=== PATIENT | female | born 1995 | race Caucasian/White ===

== ENCOUNTER 2018-05-13 19:18 | Emergency (ER) | payer OTHER ==
[~2018-05-13] VITALS: Ht 165.1 cm; Wt 119.3 kg
[2018-05-13 19:30] VITALS: BP 137/59
--- NOTE | 2018-05-13 19:35 | NUR ---
TO ER BED 12
--- NOTE | 2018-05-13 19:35 | NUR ---
23 Y/O F PRESENTS TO THE ED W/ C/O RIGHT NEE PAIN. PT STATES SHE WAS WALKING AND FELT IT POP AND THEN IT LOCKED. NO OBVIOUS DEFORMATIES NOTED. SKIN IS INTACT, PINK/WARM/DRY; PERRL; LUNGS CLEAR BL, BREATHING UNLABORED; HR EVEN AND REGULAR, BL PERIPHERAL PULSES PRESENT; 7/10 PAIN AT THIS TIME; VSS; PATIENT POSITIONED FOR COMFORT; HOB ELEVATED; BEDRAILS UP X2; BED DOWN.
--- NOTE | 2018-05-13 19:55 | NUR ---
xray at bedside
[2018-05-13] MEDS ORDERED: HYDROcodone/APAP 5/325 MG 1 TAB TAB PO ONE (20:30)
[2018-05-13] MEDS ORDERED: KETOROLAC 30 MG/ML VIAL IM ONE (20:30)
--- NOTE | 2018-05-13 20:44 | NUR ---
20 INCH KNEE IMMOBILIZER APPLIED TO PT R KNEE, TIGHTENED INTO POSITION. PT STATED SHE FELT COMFORTABLE WITH IMMOBILIZER. +CSM.
--- NOTE | 2018-05-13 20:50 | NUR ---
PT GIVEN INSTRUCTION ON PROPER USE OF CRUTCHES. PT GIVEN INSTRUCTION ON SITTING/STANDING, GOING UP AND DOWN STAIRS, AND DEMONSTRATED SAFE USE OF CRUTCHES FRO APPROXIMATELY 20 FEET. PT CRUTCHES FITTED TO HEIGHT WITH 2 INCH SPACE BETWEEN ARMPUIT AND START OF CRUTCHES, AND HANDLES RESTING AT PT WRISTS.
[2018-05-13 20:58] VITALS: BP 133/69
--- NOTE | 2018-05-13 20:59 | NUR ---
Patient discharged with v/s stable. Written and verbal after care instructions given and explained. Patient alert, oriented and verbalized understanding of instructions. Ambulatory with steady gait. All questions addressed prior to discharge. ID band removed. Patient advised to follow up with PMD. Rx of NORCO, NAPROSYN given. Patient educated on indication of medication including possible reaction and side effects. Opportunity to ask questions provided and answered.
== END 2018-05-13 20:29 | disposition home or self-care (01) ==
LOC: MED 19:18
DX: S83.91XA Sprain of unspecified site of right knee, initial encounter (principal); W01.198A Fall on same level from slipping, tripping and stumbling with subsequent striking against other object, initial encounter; Y93.01 Activity, walking, marching and hiking; Y92.89 Other specified places as the place of occurrence of the external cause; Y99.8 Other external cause status
CPT/HCPCS: 29505; 73562; 81002; 81025; 96372; 99283; J1885; Q0092

== ENCOUNTER 2018-07-09 16:47 | Emergency (ER) | payer SELFPAY ==
[~2018-07-09] VITALS: Ht 165.1 cm; Wt 90.7 kg
--- NOTE | 2018-07-09 18:40 | NUR ---
PT. CAME IN WITH FAMILY DUE TO CP AND COUGH EXACERBATION X 3 DAYS AGO. PT. STATES " WE ARE ALL HERE FOR THE SAME THING, BECAUSE THEIR IS MOLD IN OUR APARTMENT FOR ABOUT A MONTH AND ABOUT 3 DAYS AGO WE STARTED WITH SYMPTOMS". DENIES ANY N/V/D. RR EVEN AND UNLABORED. LS: CLEAR BILAT. 5/10 STERNAL NON RADIATING CHEST PAIN THAT IS CONSTANT X 3 DAYS. NO DISTRESS NOTED AT THIS TIME. ER MD MADE AWARE. SAFETY PRECAUTIONS IMPLEMENTED. WILL CONTINUE TO MONITOR.
--- NOTE | 2018-07-09 19:16 | NUR ---
Pt report given to MARYANN LEE . Transfer of care at this time.
[2018-07-09 19:25] VITALS: BP 130/82
--- NOTE | 2018-07-09 19:25 | NUR ---
Patient discharged with v/s stable. Written and verbal after care instructions given and explained. Patient alert, oriented and verbalized understanding of instructions. Ambulatory with steady gait. All questions addressed prior to discharge. ID band removed. Patient advised to follow up with PMD. Rx of LORATIDINE given. Patient educated on indication of medication including possible reaction and side effects. Opportunity to ask questions provided and answered.
== END 2018-07-09 19:25 | disposition home or self-care (01) ==
LOC: MED 16:47
DX: T78.49XA Other allergy, initial encounter (principal); J02.9 Acute pharyngitis, unspecified; X58.XXXA Exposure to other specified factors, initial encounter
CPT/HCPCS: 99283